=== PATIENT | male | born 1950 | race Caucasian/White ===

== ENCOUNTER → 2017-03-18 | Day surgery (SDC) | payer MEDICARE ==
[~2017-03-18] MED LIST: ALEV220T14 PO; BUPIVACAINE HCL PF 0.5% 30 ML VIAL ONE; NEXI20CA PO; PROPOFOL 200 MG/20 ML AMP IV ONE; TRAM50TA PO; TRIAMCINOLONE ACETONIDE 40 MG/ML VIAL I-ARTICULR ONE; methylPREDNISolone ACETATE 40 MG/ML VIAL I-ARTICULR ONE
--- NOTE | 2017-03-20 11:37 | M6 ---
cc: Faith OCAMPO DATE 03/18/2017 DATE OF 1950 PROCEDURE Fluoroscopically guided injection bilateral sacroiliac joints. PROCEDURE NOTE History and physical was completed and signed. Consent was signed. Procedure site was marked. Medications were listed and reconciled. Pain score was recorded. Allergies were noted. Time out was taken. Fluoroscopy time was recorded where applicable. Sedation was administered or directed by Dr. Ocampo. The patient was given oxygen. The patient was monitored by a registered nurse. Total procedure time was greater than 15 minutes. IV was started, blood pressure cuff, pulse oximeter and EKG were applied. The patient was placed in the prone position on a Papa table, sedated with small amounts of propofol titrated to effect. Vital signs were monitored and remained stable throughout the procedure. Fluoroscopy was used shooting from medial to lateral to clearly visualize the posterior joint line of the bilateral sacroiliac joints. Separate sterile 5-inch 22-gauge spinal needles were advanced into these joints under fluoroscopic guidance. There was negative aspiration for blood or any other type of fluid. At each location, the patient was given 2 mL of 0.5% Marcaine, 20 mg of Depo-Medrol, 20 mg of Kenalog. Following the procedure, the patient was taken to the recovery room with stable vital signs neurologically intact. He will be evaluated immediately and with followup to determine if he has a subjective decrease in his usual pain and a corresponding objective increase his functional capabilities. MD EVERARDO Jasso/LAKE /10:13 AM /11:29 AM
== END | disposition home or self-care (01) ==
LOC: PHSDC 08:44
PROVIDERS: ATTEND Pain Medicine Interventional Pain Medicine
DX: M54.5 Low back pain (principal); M25.552 Pain in left hip; M25.551 Pain in right hip
CPT/HCPCS: 99152; G0260; J1030; J3301; 27096

== ENCOUNTER → 2017-09-24 | Day surgery (SDC) | payer MEDICARE ==
--- NOTE | 2017-09-24 09:44 | M6 ---
cc: Faith Ocampo MD DATE: 09/24/2017 PROCEDURE PERFORMED: Fluoroscopically-guided injection, bilateral sacroiliac joints. History and physical was completed and signed. Consent was signed. Procedure site was marked. Medications were listed and reconciled. Pain score was recorded. Allergies were noted. Time out was taken. Fluoroscopy time was recorded where applicable. Sedation was administered or directed by Dr. Ocampo. The patient was given oxygen. The patient was monitored by a registered nurse. Total procedure time was greater than 15 minutes. PROCEDURE NOTE: IV was started. Blood pressure cuff pulse oximeter and EKG were applied. The patient was placed in the prone position on a Papa table, sedated with small amounts of propofol titrated to effect. Vital signs were monitored and remained stable throughout the procedure. The sacral area was prepped with alcohol and 10% Betadine solution and draped with sterile drapes. Fluoroscopy was used shooting from medial to lateral to clearly visualize the posterior joint line of the bilateral sacroiliac joints. Separate sterile 5 inch, 22-gauge spinal needles were advanced into these joints under fluoroscopic guidance. There was negative aspiration for blood or any other type of fluid and at each location, the patient was given 2 mL of 0.5% Marcaine, 20 mg, and 20 mg of Kenalog. Following the procedure, the patient was taken to the recovery room with stable vital signs neurologically intact and he will be able to evaluated immediately and with followup to determine if he has a subjective decrease in his usual pain and a corresponding objective increase in his functional capabilities. Faith Ocampo MD [facility] , 09:32 AM , 09:43 AM
== END | disposition home or self-care (01) ==
LOC: PHSDC 07:58
PROVIDERS: ATTEND Pain Medicine Interventional Pain Medicine
DX: M54.5 Low back pain (principal)
CPT/HCPCS: 99152; G0260; J1030; J3301; 27096